=== PATIENT | male | born 1950 | race Hispanic/Latino ===

== ENCOUNTER 2022-04-12 07:44 | Observation (INO) | payer OTHER ==
--- NOTE | 2022-04-06 15:13 | Anesthesia Consultation ---
Anesthesia Consult and Med Hx Date of service: 04/12/22 - Airway Anesthetic Teeth Evaluation: Dentures, Edentulous ROM Head & Neck: Adequate Mental/Hyoid Distance: Adequate Mallampati Class: Class II Intubation Access Assessment: Good - Pre-Operative Health Status ASA Pre-Surgery Classification: ASA2 Proposed Anesthetic Plan: General - Pulmonary Hx Smoking: Yes (Quit 7 years ago) Hx Respiratory Symptoms: No (+2FS) Hx Sleep Apnea: No - Cardiovascular System Hx Hypertension: Yes - Central Nervous System Hx Psychiatric Problems: No - Gastrointestinal Hx Gastroesophageal Reflux Disease: Yes - Endocrine Hx Non-Insulin Dependent Diabetes: Yes - Other Systems Hx Substance Use: Yes (Occas marijuana) Hx Cancer: No - Additional Comments Anesthesia Medical History Comments: +PCP Clearance. States he woke up twice during surgery many years ago (one was SAB) and has had subsequent anesthetics without issue
[~2022-04-12 07:44] MED LIST: ACETAMINOPHEN 325 MG TAB PO ONE; CELECOXIB 200 MG CAP PO NR; GABAPENTIN 300 MG CAP PO NR; LACTATED RINGERS 1,000 ML IV SCH; MAGNESIUM OXIDE 400 MG TAB PO ONE; MIDAZOLAM 2 MG/2 ML INJ IV NR
[2022-04-12] MEDS ORDERED: VANCOMYCIN/NS 1 GM/250 ML 1 GM/250 ML BAG IV NR (08:30)
[2022-04-12] MEDS ORDERED: MAGNESIUM OXIDE 400 MG TAB PO ONE (08:32)
--- NOTE | 2022-04-12 08:55 | Anesthesia Day of Surgery ---
Anesthesia Day of Surgery - Day of Surgery Patient Examined: Yes Patient H&P Reviewed: Yes Patient is NPO: Yes
[2022-04-12] MEDS ORDERED: ACETAMINOPHEN 325 MG TAB PO PRN (09:00)
[2022-04-12] MEDS ORDERED: NALOXONE 0.4 MG/1 ML INJ IV PRN (09:00)
[2022-04-12] MEDS ORDERED: ONDANSETRON 4 MG/2 ML INJ IV PRN (09:18)
[2022-04-12] MEDS ORDERED: HYDROmorphone 0.5 MG/0.5 ML INJ IV PRN (09:18)
[2022-04-12] MEDS ORDERED: GENTAMICIN 40 MG/ML VIAL 2 ML ONE (10:11)
[2022-04-12] MEDS ORDERED: rifAMPin 600 MG VIAL ONE (10:11)
[2022-04-12] MEDS ORDERED: BUPIVACAINE/PF (0.5%) 5 MG/1 ML 30 ML VIAL INFILTRATI ONE ×2 (10:11→11:28)
[2022-04-12] MEDS ORDERED: SODIUM CHLORIDE P/F VIAL 10 ML 10 ML ONE (10:11)
[2022-04-12] MEDS ORDERED: SODIUM CHLORIDE 0.9% 500 ML 500 ML ONE (10:12)
[2022-04-12] MEDS ORDERED: SODIUM CHLORIDE 0.9% 50 ML ONE (10:12)
[2022-04-12] MEDS ORDERED: NEOMY 40 MG/POLYMYXIN B 200,000 UNITS/ML (GU) AMPULE IR ONE (10:12)
[2022-04-12] MEDS ORDERED: LIDOCAINE MPF (2%) 20 MG/1 ML VIAL 5 ML ONE (10:13)
[2022-04-12] MEDS ORDERED: fentaNYL 100 MCG/2 ML INJ ONE (10:14)
[2022-04-12] MEDS ORDERED: propofoL 200 MG/20 ML VIAL IV ONE (10:15)
[2022-04-12] MEDS ORDERED: SODIUM CHLORIDE 0.9% 500 ML IVPB IRRIGATION ONE (11:27)
[2022-04-12] MEDS ORDERED: SODIUM CHLORIDE 0.9% 50 ML IVPB IV ONE (11:27)
[2022-04-12] MEDS ORDERED: SODIUM CHLORIDE 0.9% P/F 10 ML VIAL IV ONE (11:28)
[2022-04-12] MEDS ORDERED: rifAMPin 600 MG VIAL IV ONE (11:28)
[2022-04-12] MEDS ORDERED: GENTAMICIN 40 MG/ML VIAL 2 ML IV ONE (11:29)
[2022-04-12] MEDS ORDERED: KETOROLAC 30 MG/1 ML INJ ONE (11:55)
[2022-04-12] MEDS ORDERED: ONDANSETRON 4 MG/2 ML INJ ONE (11:55)
[2022-04-12] MEDS ORDERED: dexAMETHasone 20 MG/5 ML VIAL ONE (11:55)
--- NOTE | 2022-04-12 12:28 | Short Stay Summary ---
Short Stay Documentation Date of service: 04/12/22 - History H&P: obtained from office - Allergies and Medications Current Medications: Allergies erythromycin base Allergy (Verified 04/06/22 18:19) Unknown levofloxacin [From Levaquin] Allergy (Verified 04/06/22 18:19) Unknown lisinopril Allergy (Verified 04/06/22 18:19) Unknown peanut Allergy (Verified 04/06/22 18:19) Unknown Penicillins Allergy (Verified 04/06/22 18:19) Unknown sulfamethoxazole [From Bactrim] Allergy (Verified 04/06/22 18:19) Unknown trimethoprim [From Bactrim] Allergy (Verified 04/06/22 18:19) Unknown Home Medications Medication Instructions Recorded Confirmed Last Taken Type Aspirin [[place] Aspirin EC] 81 mg PO DAILY 04/06/22 04/06/22 Unknown History Cholecalciferol Vit D3 [Vitamin D3 1,000 unit PO QDAY 04/06/22 04/06/22 Unknown History 1,000 UNIT TAB] Famotidine [Zantac-360 20 mg PO PRN PRN 04/06/22 04/06/22 Unknown History (Famotidine)] Glimepiride [Amaryl] 4 mg PO BID 04/06/22 04/06/22 Unknown History Meloxicam, Submicronized 15 mg PO PRN PRN 04/06/22 04/06/22 Unknown History [Meloxicam] Metformin HCl [metFORMIN] 1,000 mg PO BID 04/06/22 04/06/22 Unknown History Metoprolol [Lopressor] 100 mg PO DAILY 04/06/22 04/06/22 Unknown History Semaglutide [Wegovy] 1 mg SQ QWEEK 04/06/22 04/06/22 Unknown History Tamsulosin [Flomax] 0.4 mg PO QDAY 04/06/22 04/06/22 Unknown History Triamterene-Hctz 37.5-25 mg Tb 1 tab PO DAILY 04/06/22 04/06/22 Unknown History amLODIPine [Norvasc] 10 mg PO DAILY 04/06/22 04/06/22 Unknown History Active Medications Acetaminophen (Acetaminophen 325 Mg Tab) 650 mg PO Q4H PRN PRN Reason: Pain MILD(1-3)/Fever >100.5/SOLIS Hydrocodone Bitart/Acetaminophen (Hydrocodone/Acetaminophen 5-325 Mg Tab) 2 each PO Q6H PRN PRN Reason: Pain, Moderate (4-6) Celecoxib (Celecoxib 200 Mg Cap) 200 mg PO PREOP NR Stop: 04/12/22 23:59 Last Admin: 04/12/22 08:30 Dose: 200 mg Gabapentin (Gabapentin 300 Mg Cap) 300 mg PO PREOP NR Stop: 04/12/22 23:59 Last Admin: 04/12/22 08:30 Dose: 300 mg Hydromorphone HCl (Hydromorphone 0.5 Mg/0.5 Ml Inj) 0.5 mg IV Q10MIN PRN PRN Reason: Pain , Severe (7-10) Stop: 04/12/22 23:59 Lactated Ringer's (Lactated Ringers) 1,000 mls @ 125 mls/hr IV DIRECT GHISLAINE Last Admin: 04/12/22 08:45 Dose: 125 mls/hr Vancomycin HCl (Vancomycin/Ns 1 Gm/250 Ml) 1 gm in 250 mls @ 166.667 mls/hr IV PREOP NR; Protocol Stop: 04/12/22 17:00 Midazolam HCl (Midazolam 2 Mg/2 Ml Inj) 2 mg IV PREOP NR Stop: 04/12/22 23:59 Last Admin: 04/12/22 09:00 Dose: 2 mg Morphine Sulfate (Morphine 4 Mg/1 Ml Inj) 4 mg IV Q4H PRN PRN Reason: Pain , Severe (7-10) Naloxone HCl (Naloxone 0.4 Mg/1 Ml Inj) 0.1 mg IV Q2MIN PRN PRN Reason: Res Rate </= 8 or 02 SAT < 92% Ondansetron HCl (Ondansetron 4 Mg/2 Ml Inj) 4 mg IV ONCE PRN PRN Reason: Nausea And Vomiting Stop: 04/12/22 23:59 - Brief post op/procedure progress note Date of procedure: 04/12/22 Pre-op diagnosis: ed Post-op diagnosis: same Procedure: [id number]+ 2cm Anesthesia: GETA Surgeon: LILIA ALMAZAN Estimated blood loss: minimal Pathology: list (scrotal skin) Condition: stable - Hospital course Hospital course: post op info on chart DC FERNÁNDEZ DONE DC HOME - Disposition Condition at discharge: Stable Disposition: 01 HOME / SELF CARE / HOMELESS Short Stay Discharge Plan Follow up with: [facility] [Primary Care Provider] - 7 Days
[2022-04-12] MEDS ORDERED: FAMOTIDINE 20 MG TAB PO PRN (12:33)
--- NOTE | 2022-04-12 12:54 | Operative Report ---
DATE OF SURGERY: 04/12/2022 PREOPERATIVE DIAGNOSIS: Erectile dysfunction. POSTOPERATIVE DIAGNOSIS: Erectile dysfunction. 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 SURGEON: Anurag Valiente MD ANESTHESIA: General. ESTIMATED BLOOD LOSS: Minimal. FLUIDS: Crystalloid. COMPLICATIONS: No complications. INDICATIONS: This is a 71-year-old gentleman seen in the office with several years. He was seen by several physicians in our group for erectile dysfunction is now refractory. We reviewed options, he agreed to proceed with surgical intervention. DESCRIPTION OF PROCEDURE: The patient was taken to the operative suite, placed in a supine position. After adequate general anesthesia, he was prepped and draped in a sterile fashion. A 10 mL dorsal block with Marcaine was performed, pharmacologic injection into the corporal body revealed no curvature or plaque. Transscrotal incision was made with a Bovie. Sharp dissection was taken down to the corporal bodies. 2-0 Vicryl stay sutures were placed. Corporotomies were made bilaterally. Measurements were 19.5 cm and therefore an 18 cm device was prepped with 2 cm rear tip extenders to allow fullness of his erection. [place] was prepped and placed in the retropubic space via the right external ring, 80 mL saline was placed. The cylinders were placed in the corporal bodies with the aid of a Elias needle. 2-0 Vicryl running stitch was used to close the corporotomies. Insufflation revealed an excellent appearance. The pump and reservoir was connected with the quick click connection system and then tested again with an excellent appearance. Pump was placed in the dependent portion of the scrotum. 2-0 Vicryl pursestring was used to secure the pump in the dependent portion as well as close the dartos layer. 3-0 Vicryl was used to close the skin after scrotoplasty was performed taking a wedge resection of the dependent portion. The patient tolerated the procedure well. Xeroform gauze and collodion was placed as well as a mummy wrap. He will be observed overnight. TID: [id number] RECEIPT: [id number] [facility]/[place]
[2022-04-12] MEDS ORDERED: SODIUM CHLORIDE 0.45% 1000 ML 1,000 ML IV SCH (13:00)
[2022-04-12] MEDS: TAMSULOSIN 0.4 MG CAP PO SCH (14:30)
[2022-04-12] MEDS: SODIUM CHLORIDE 0.45% 1000 ML 1,000 ML IV SCH (14:30)
[2022-04-12] MEDS: amLODIPine 10 MG TAB PO SCH (14:35)
--- NOTE | 2022-04-12 15:05 | Post Anesthesia Evaluation ---
- Post Anesthesia Evaluation Patient Participated: Yes Airway Patent: Yes Stable Respiratory Function: Yes Nausea/Vomiting: No Temp > 96.8F: Yes Pain Manageable: Yes Adequeate Hydration: Yes Anesthesia Complications: No
--- NOTE | 2022-04-12 16:10 | History and Physical Report ---
History of Present Illness Date of examination: 04/12/22 Date of admission: 04/12/22 08:22 Medications and Allergies Allergies Allergy/AdvReac Type Severity Reaction Status Date / Time erythromycin base Allergy Unknown Verified 04/06/22 18:19 levofloxacin [From Levaquin] Allergy Unknown Verified 04/06/22 18:19 lisinopril Allergy Unknown Verified 04/06/22 18:19 peanut Allergy Unknown Verified 04/06/22 18:19 Penicillins Allergy Unknown Verified 04/06/22 18:19 sulfamethoxazole Allergy Unknown Verified 04/06/22 18:19 [From Bactrim] trimethoprim [From Bactrim] Allergy Unknown Verified 04/06/22 18:19 Home Medications Medication Instructions Recorded Confirmed Last Taken Type Aspirin [[place] Aspirin EC] 81 mg PO DAILY 04/06/22 04/06/22 Unknown History Cholecalciferol Vit D3 [Vitamin D3 1,000 unit PO QDAY 04/06/22 04/06/22 Unknown History 1,000 UNIT TAB] Famotidine [Zantac-360 20 mg PO PRN PRN 04/06/22 04/06/22 Unknown History (Famotidine)] Glimepiride [Amaryl] 4 mg PO BID 04/06/22 04/06/22 Unknown History Meloxicam, Submicronized 15 mg PO PRN PRN 04/06/22 04/06/22 Unknown History [Meloxicam] Metformin HCl [metFORMIN] 1,000 mg PO BID 04/06/22 04/06/22 Unknown History Metoprolol [Lopressor] 100 mg PO DAILY 04/06/22 04/06/22 Unknown History Semaglutide [Wegovy] 1 mg SQ QWEEK 04/06/22 04/06/22 Unknown History Tamsulosin [Flomax] 0.4 mg PO QDAY 04/06/22 04/06/22 Unknown History Triamterene-Hctz 37.5-25 mg Tb 1 tab PO DAILY 04/06/22 04/06/22 Unknown History amLODIPine [Norvasc] 10 mg PO DAILY 04/06/22 04/06/22 Unknown History Active Meds: Active Medications Acetaminophen (Acetaminophen 325 Mg Tab) 650 mg PO Q4H PRN PRN Reason: Pain MILD(1-3)/Fever >100.5/SOLIS Hydrocodone Bitart/Acetaminophen (Hydrocodone/Acetaminophen 5-325 Mg Tab) 2 each PO Q6H PRN PRN Reason: Pain, Moderate (4-6) Amlodipine Besylate (Amlodipine 10 Mg Tab) 10 mg PO DAILY GHISLAINE Last Admin: 04/12/22 14:35 Dose: Not Given Celecoxib (Celecoxib 200 Mg Cap) 200 mg PO PREOP NR Stop: 04/12/22 23:59 Last Admin: 04/12/22 08:30 Dose: 200 mg Cholecalciferol (Cholecalciferol (Vit D3) 1000 Unit (25 Mcg) Tab) 1,000 unit PO QDAY [facility]IS[facility] Famotidine (Famotidine 20 Mg Tab) 20 mg PO DAILY PRN PRN Reason: Indigestion Gabapentin (Gabapentin 300 Mg Cap) 300 mg PO PREOP NR Stop: 04/12/22 23:59 Last Admin: 04/12/22 08:30 Dose: 300 mg Glimepiride (Glimepiride 4 Mg Tab) 4 mg PO BIDDIAB [facility]IS[facility] Hydromorphone HCl (Hydromorphone 0.5 Mg/0.5 Ml Inj) 0.5 mg IV Q10MIN PRN PRN Reason: Pain , Severe (7-10) Stop: 04/12/22 23:59 Lactated Ringer's (Lactated Ringers) 1,000 mls @ 125 mls/hr IV DIRECT GHISLAINE Stop: 04/12/22 18:00 Last Admin: 04/12/22 08:45 Dose: 125 mls/hr Vancomycin HCl (Vancomycin/Ns 1 Gm/250 Ml) 1 gm in 250 mls @ 166.667 mls/hr IV PREOP NR; Protocol Stop: 04/12/22 17:00 Sodium Chloride (Nacl 0.45% 1000 Ml) 1,000 mls @ 100 mls/hr IV DIRECT GHISLAINE Last Admin: 04/12/22 14:30 Dose: 100 mls/hr Vancomycin HCl (Vancomycin/Ns 1 Gm/250 Ml) 1 gm in 250 mls @ 166.667 mls/hr IV Q12H GHISLAINE; Protocol Stop: 04/13/22 11:29 Metformin HCl (Metformin 500 Mg Tab) 1,000 mg PO BIDDIAB [facility]IS[facility] Metoprolol Tartrate (Metoprolol Tartrate 100 Mg Tab) 100 mg PO DAILY GHIS[facility] Midazolam HCl (Midazolam 2 Mg/2 Ml Inj) 2 mg IV PREOP NR Stop: 04/12/22 23:59 Last Admin: 04/12/22 09:00 Dose: 2 mg Morphine Sulfate (Morphine 4 Mg/1 Ml Inj) 4 mg IV Q4H PRN PRN Reason: Pain , Severe (7-10) Naloxone HCl (Naloxone 0.4 Mg/1 Ml Inj) 0.1 mg IV Q2MIN PRN PRN Reason: Res Rate </= 8 or 02 SAT < 92% Ondansetron HCl (Ondansetron 4 Mg/2 Ml Inj) 4 mg IV ONCE PRN PRN Reason: Nausea And Vomiting Stop: 04/12/22 23:59 Tamsulosin HCl (Tamsulosin 0.4 Mg Cap) 0.4 mg PO QDAY [facility] Last Admin: 04/12/22 14:30 Dose: 0.4 mg Triamterene/Hydrochlorothiazide (Triamter/Hctz 37.5-25 Mg Tab) [facility] [place] Ex[place] - Constitutional Vitals: Temp Pulse Resp BP Pulse Ox 98.8 F 77 11 L 127/64 98 04/12/22 13:40 04/12/22 13:40 04/12/22 13:40 04/12/22 13:40 04/12/22 14:37 General appearance: Present: no acute distress, well-nourished - EENT Eyes: Present: PERRL ENT: hearing intact, clear oral mucosa - Neck Neck: Present: supple, normal ROM - Respiratory Respiratory effort: normal Respiratory: bilateral: CTA - Cardiovascular Heart Sounds: Present: S1 & S2. Absent: rub, click - Extremities Extremities: pulses symmetrical, No edema Peripheral Pulses: within normal limits - Abdominal General gastrointestinal: Present: soft, non-tender, non-distended, normal bowel sounds Male genitourinary: Present: normal - Integumentary Integumentary: Present: clear, warm, dry - Musculoskeletal Musculoskeletal: gait normal, strength equal bilaterally - Psychiatric Psychiatric: appropriate mood/affect, intact judgment & insight - Neurologic Neurologic: CNII-XII intact, moves all extremities Results - Labs Labs: Laboratory Last Values POC Glucose 143 mg/dL (70-105) H 04/12/22 12:44 Blanco/IV: Voiding Method Indwelling Catheter Assessment and Plan Advance Directives: Yes (Full code) VTE prophylaxis?: Chemical Plan of care discussed with patient/family: Yes
[2022-04-12] MEDS: GLIMEPIRIDE 4 MG TAB PO SCH (17:11)
[2022-04-12] MEDS: metFORMIN 500 MG TAB PO SCH (17:11)
[2022-04-12] MEDS: MORPHINE 4 MG/1 ML INJ IV PRN (20:50)
[2022-04-12] MEDS: VANCOMYCIN/NS 1 GM/250 ML 1 GM/250 ML BAG IV SCH ×2 (20:51→22:41)
[2022-04-12] MEDS ORDERED: NON-FORMULARY EACH (Metformin Hcl [Metformin] 1,000 MG Tablet) PO SCH (22:00)
[2022-04-13] MEDS: SODIUM CHLORIDE 0.45% 1000 ML 1,000 ML IV SCH (00:36)
[2022-04-13] MEDS: HYDROcodone/ACETAMINOPHEN 5-325 MG TAB PO PRN ×3 (00:43→15:14)
[2022-04-13] MEDS: MORPHINE 4 MG/1 ML INJ IV PRN ×2 (04:47→11:22)
[2022-04-13] MEDS: GLIMEPIRIDE 4 MG TAB PO SCH (07:46)
[2022-04-13] MEDS: metFORMIN 500 MG TAB PO SCH (07:46)
--- NOTE | 2022-04-13 08:18 | Consultation ---
History of Present Illness - Reason for Consult Consult date: 04/12/22 Medical management Requesting physician: LILIA ALMAZAN - History of Present Illness S/p IPP Postop patient doing well No complications Past History Past Medical History: diabetes, GERD, hypertension, hyperlipidemia Past Surgical History: Other (IPP) Social history: lives with family, full code Family history: hypertension Medications and Allergies Allergies Allergy/AdvReac Type Severity Reaction Status Date / Time erythromycin base Allergy Unknown Verified 04/06/22 18:19 levofloxacin [From Levaquin] Allergy Unknown Verified 04/06/22 18:19 lisinopril Allergy Unknown Verified 04/06/22 18:19 peanut Allergy Unknown Verified 04/06/22 18:19 Penicillins Allergy Unknown Verified 04/06/22 18:19 sulfamethoxazole Allergy Unknown Verified 04/06/22 18:19 [From Bactrim] trimethoprim [From Bactrim] Allergy Unknown Verified 04/06/22 18:19 Home Medications Medication Instructions Recorded Confirmed Last Taken Type Aspirin [[place] Aspirin EC] 81 mg PO DAILY 04/06/22 04/06/22 Unknown History Cholecalciferol Vit D3 [Vitamin D3 1,000 unit PO QDAY 04/06/22 04/06/22 Unknown History 1,000 UNIT TAB] Famotidine [Zantac-360 20 mg PO PRN PRN 04/06/22 04/06/22 Unknown History (Famotidine)] Glimepiride [Amaryl] 4 mg PO BID 04/06/22 04/06/22 Unknown History Meloxicam, Submicronized 15 mg PO PRN PRN 04/06/22 04/06/22 Unknown History [Meloxicam] Metformin HCl [metFORMIN] 1,000 mg PO BID 04/06/22 04/06/22 Unknown History Metoprolol [Lopressor] 100 mg PO DAILY 04/06/22 04/06/22 Unknown History Semaglutide [Wegovy] 1 mg SQ QWEEK 04/06/22 04/06/22 Unknown History Tamsulosin [Flomax] 0.4 mg PO QDAY 04/06/22 04/06/22 Unknown History Triamterene-Hctz 37.5-25 mg Tb 1 tab PO DAILY 04/06/22 04/06/22 Unknown History amLODIPine [Norvasc] 10 mg PO DAILY 04/06/22 04/06/22 Unknown History Active Meds: Active Medications Acetaminophen (Acetaminophen 325 Mg Tab) 650 mg PO Q4H PRN PRN Reason: Pain MILD(1-3)/Fever >100.5/SOLIS Hydrocodone Bitart/Acetaminophen (Hydrocodone/Acetaminophen 5-325 Mg Tab) 2 each PO Q6H PRN PRN Reason: Pain, Moderate (4-6) Last Admin: 04/13/22 07:46 Dose: 2 each Amlodipine Besylate (Amlodipine 10 Mg Tab) 10 mg PO DAILY [facility] Last Admin: 04/12/22 14:35 Dose: Not Given Cholecalciferol (Cholecalciferol (Vit D3) 1000 Unit (25 Mcg) Tab) 1,000 unit PO QDAY [facility] Famotidine (Famotidine 20 Mg Tab) 20 mg PO DAILY PRN PRN Reason: Indigestion Glimepiride (Glimepiride 4 Mg Tab) 4 mg PO BIDDIAB [facility] Last Admin: 04/13/22 07:46 Dose: 4 mg Sodium Chloride (Nacl 0.45% 1000 Ml) 1,000 mls @ 100 mls/hr IV DIRECT [facility] Last Admin: 04/13/22 00:36 Dose: 100 mls/hr Vancomycin HCl (Vancomycin/Ns 1 Gm/250 Ml) 1 gm in 250 mls @ 166.667 mls/hr IV Q12H [facility]; Protocol Stop: 04/13/22 11:29 Last Admin: 04/12/22 22:41 Dose: Not Given Metformin HCl (Metformin 500 Mg Tab) 1,000 mg PO BIDDIAB [facility] Last Admin: 04/13/22 07:46 Dose: 1,000 mg Metoprolol Tartrate (Metoprolol Tartrate 100 Mg Tab) 100 mg PO DAILY [facility] Morphine Sulfate (Morphine 4 Mg/1 Ml Inj) 4 mg IV Q4H PRN PRN Reason: Pain , Severe (7-10) Last Admin: 04/13/22 04:47 Dose: 4 mg Naloxone HCl (Naloxone 0.4 Mg/1 Ml Inj) 0.1 mg IV Q2MIN PRN PRN Reason: Res Rate </= 8 or 02 SAT < 92% Tamsulosin HCl (Tamsulosin 0.4 Mg Cap) 0.4 mg PO QDAY [facility] Last Admin: 04/12/22 14:30 Dose: 0.4 mg Triamterene/Hydrochlorothiazide (Triamter/Hctz 37.5-25 Mg Tab) 1 each PO QAM [facility] Review of Systems All systems: negative Exam - Constitutional Vitals: Temp Pulse Resp BP Pulse Ox 98.5 F 79 18 125/52 95 04/13/22 04:10 04/13/22 04:10 04/13/22 04:10 04/13/22 04:10 04/13/22 04:10 General appearance: Present: no acute distress, well-nourished - EENT Eyes: Present: PERRL ENT: hearing intact, clear oral mucosa - Neck Neck: Present: supple, normal ROM - Respiratory Respiratory effort: normal Respiratory: bilateral: CTA - Cardiovascular Heart rate: 78 Rhythm: regular Heart Sounds: Present: S1 & S2. Absent: rub, click - Extremities Extremities: pulses symmetrical, No edema Peripheral Pulses: within normal limits - Abdominal General gastrointestinal: Present: soft, non-tender, non-distended, normal bowel sounds Male genitourinary: Present: normal - Integumentary Integumentary: Present: clear, warm, dry - Musculoskeletal Musculoskeletal: gait normal, strength equal bilaterally - Psychiatric Psychiatric: appropriate mood/affect, intact judgment & insight - Neurologic Neurologic: CNII-XII intact, moves all extremities Results - Labs Labs: Abnormal lab results 04/12/22 04/12/22 04/12/22 Range/Units 08:55 12:44 16:38 POC Glucose 137 H 143 H 221 H (70-105) mg/dL Assessment and Plan - Patient Problems (1) Status post surgery Current Visit: Yes Status: Acute Plan to address problem: Patient had IPP Postop patient doing well (2) T2DM (type 2 diabetes mellitus) Current Visit: Yes Status: Chronic Qualifiers: Diabetes mellitus long-term insulin use: without long chain beamer use Plan to address problem: Continue oral hypoglycemics and coverage (3) Hypertension Current Visit: Yes Status: Chronic Qualifiers: Hypertension type: primary hypertension Qualified Code(s): I10 - Essential (primary) hypertension Plan to address problem: Continue antihypertensives and adjust medications as necessary (4) GERD (gastroesophageal reflux disease) Current Visit: Yes Status: Chronic Qualifiers: Esophagitis presence: without esophagitis Qualified Code(s): K21.9 - Gastro-esophageal reflux disease without esophagitis Plan to address problem: Continue PPIs (5) DVT prophylaxis Current Visit: Yes Status: Acute Plan to address problem: On SCDs and GI prophylaxis
[2022-04-13] MEDS: amLODIPine 10 MG TAB PO SCH (09:37)
[2022-04-13] MEDS: TAMSULOSIN 0.4 MG CAP PO SCH (09:40)
[2022-04-13] MEDS ORDERED: [UNRECOGNIZED DRUG - OTHER] PO SCH (10:00)
[2022-04-13] MEDS ORDERED: CHOLECALCIFEROL (VIT D3) 1000 UNIT (25 mcg) TAB PO SCH (10:00)
[2022-04-13] MEDS ORDERED: TRIAMTERENE HCTZ PO SCH (10:00)
[2022-04-13] MEDS ORDERED: TRIAMTER/HCTZ 37.5-25 MG TAB PO SCH (10:00)
[2022-04-13] MEDS ORDERED: METOPROLOL TARTRATE 100 MG TAB PO SCH ×2 (10:00)
[2022-04-13] MEDS: VANCOMYCIN/NS 1 GM/250 ML 1 GM/250 ML BAG IV SCH (11:28)
[2022-04-13] MEDS ORDERED: INSULIN LISPRO 100 UNIT/ML SUB-Q SCH (11:30)
[2022-04-13 12:55] VITALS: BP 121/67
== END 2022-04-13 16:46 | disposition home or self-care (01) ==
LOC: OR 07:44 → 3A 08:22
PROVIDERS: ADMIT Urology; ATTEND Urology
DX: N52.01 Erectile dysfunction due to arterial insufficiency (principal); I10 Essential (primary) hypertension; E11.9 Type 2 diabetes mellitus without complications; K21.9 Gastro-esophageal reflux disease without esophagitis; E78.5 Hyperlipidemia, unspecified; Z79.82 Long term (current) use of aspirin; Z79.84 Long term (current) use of oral hypoglycemic drugs; Z79.899 Other long term (current) drug therapy; Z98.890 Other specified postprocedural states
CPT/HCPCS: 54405; 82962; 88305; 96365; 96366; 96375; 96376; C1813; G0378; G0379; J1100; J1580; J1885; J2250; J2270; J2405; J2704; J3010; J3370; J3490; J7030; J7040; J7120